=== PATIENT | female | born 1985 | race Caucasian/White ===

== ENCOUNTER 2016-07-11 18:09 | Inpatient (IN) | payer OTHER ==
[~2016-07-11] VITALS: Ht 165.1 cm; Wt 72.8 kg
[~2016-07-11 18:09] MED LIST: FOLI1TAB6; METHPOW77; NOR5T
[2016-07-11] MEDS ORDERED: SODIUM CHLORIDE 0.9% 1,000 ML IV ONE (19:14)
[2016-07-11] MEDS ORDERED: ONDANSETRON HCL 4 MG/2 ML VIAL IV ONE ×2 (19:15→21:00)
[2016-07-11] MEDS ORDERED: HYDROmorphone HCL 2 MG/ML VL IV ONE ×2 (19:15→21:00)
[2016-07-11 19:16] LABS: Basophils # (auto) 0 uL; Basophils % (auto) 0.6 % (0.0-2.0); Eosinophils # (auto) 0 uL; Eosinophils % (auto) 1.2 % (0.0-7.0); Hematocrit 41.6 % (36.0-46.0); Hemoglobin 13.8 g/dL (12.2-16.2); Lymphocytes # (auto) 0.3 uL; Lymphocytes % (auto) 13.1 % (10.0-50.0); Mean Corpuscular Hemoglobin 28.9 pg (28.0-32.0); Mean Corpuscular Hgb Conc. 33.2 g/dL (32.0-36.0); Mean Corpuscular Volume 87.1 fL (80.0-100.0); Mean Platelet Volume 8.9 fL (7.4-10.4); Monocytes # (auto) 0.4 uL; Monocytes % (auto) 13.7 % (0.0-12.0); Neutrophils # (auto) 1.9 uL; Neutrophils % (auto) 71.4 % (37.0-80.0); Platelet Count (auto) 204 10^3/uL (140-450); White Blood Cell 2.6 10^3/uL (4.4-10.8)
[2016-07-11 19:24] LABS: Albumin 4.2 g/dL (3.4-5.0); BUN/Creatinine Ratio 17.1; Calcium 8.5 mg/dL (8.5-10.1); Potassium 3.4 mmol/L (3.5-5.1)
[2016-07-11 19:26] LABS: Bilirubin, Total 0.4 mg/dL (0.2-1.0); Total Protein 7.2 g/dL (6.4-8.2)
[2016-07-12] VITALS (7 sets, daily range): BP systolic 96–102; BP diastolic 60–74
[2016-07-12 00:13] LABS: Urine Bilirubin Negative (Negative); Urine Blood Negative /uL (Negative); Urine Color Yellow (Yellow); Urine Glucose Normal (Normal); Urine Mucus FEW (None Seen); Urine Nitrite Negative (Negative); Urine RBC 1 /hpf (0 - 4); Urine Urobilinogen Normal (Negative)
[2016-07-12 00:15] LABS: Urine Ketone 2+ (Negative)
[2016-07-12] MEDS ORDERED: HYDROmorphone HCL 2 MG/ML VL IV ONE (01:15)
[2016-07-12] MEDS ORDERED: PROMETHAZINE HCL 25 MG/ML 1ML IV ONE (01:15)
[2016-07-12] MEDS ORDERED: ACETAMINOPHEN 325 MG TAB PO PRN (02:15)
[2016-07-12] MEDS ORDERED: ONDANSETRON HCL 4 MG/2 ML VIAL IV PRN (02:15)
[2016-07-12] MEDS ORDERED: POTASSIUM CHL 20 Meq TABLET PO ONE (02:30)
[2016-07-12] MEDS: HYDROcodone-ACET 5/325MG TAB PO PRN ×2 (03:49→19:51)
[2016-07-12] MEDS ORDERED: OXY10CRT PO (03:57)
[2016-07-12] MEDS ORDERED: TOCI80IN IV (03:57)
[2016-07-12] MEDS: FAMOTIDINE 20 MG TAB PO SCH ×2 (08:59→21:49)
[2016-07-12] MEDS: MORPHINE SULF INJ 2 MG/ML SYRINGE 1ML IV PRN ×4 (08:59→22:12)
[2016-07-12] MEDS ORDERED: methylPREDNISolone SOD SUCC 40 MG/ML VL IV ONE (14:15)
[2016-07-12] MEDS: SODIUM CHLORIDE 0.9% 1,000 ML IV SCH (17:57)
[2016-07-13] MEDS: MORPHINE SULF INJ 2 MG/ML SYRINGE 1ML IV PRN ×3 (03:15→16:09)
[2016-07-13] MEDS: SODIUM CHLORIDE 0.9% 1,000 ML IV SCH (03:15)
[2016-07-13 05:00] VITALS: BP 97/59
[2016-07-13 06:09] LABS: Basophils # (auto) 0 uL; Basophils % (auto) 1.7 % (0.0-2.0); Eosinophils # (auto) 0 uL; Eosinophils % (auto) 0.4 % (0.0-7.0); Hematocrit 38.4 % (36.0-46.0); Hemoglobin 12.7 g/dL (12.2-16.2); Lymphocytes # (auto) 0.7 uL; Lymphocytes % (auto) 25.6 % (10.0-50.0); Mean Corpuscular Hemoglobin 29.5 pg (28.0-32.0); Mean Corpuscular Hgb Conc. 33.1 g/dL (32.0-36.0); Mean Corpuscular Volume 89.3 fL (80.0-100.0); Mean Platelet Volume 9.3 fL (7.4-10.4); Monocytes # (auto) 0.4 uL; Monocytes % (auto) 13.7 % (0.0-12.0); Neutrophils # (auto) 1.6 uL; Neutrophils % (auto) 58.6 % (37.0-80.0); Platelet Count (auto) 146 10^3/uL (140-450); Red Cell Distribution Width 11.8 % (11.6-16.0); White Blood Cell 2.7 10^3/uL (4.4-10.8)
[2016-07-13 06:36] LABS: Albumin 3.2 g/dL (3.4-5.0); Calcium 7.6 mg/dL (8.5-10.1); Magnesium 2.1 mg/dL (1.6-2.6); Potassium 4.1 mmol/L (3.5-5.1)
[2016-07-13 06:38] LABS: BUN/Creatinine Ratio 15.1
[2016-07-13 06:40] LABS: Bilirubin, Total 0.3 mg/dL (0.2-1.0); Total Protein 5.8 g/dL (6.4-8.2)
[2016-07-13] MEDS: HYDROcodone-ACET 5/325MG TAB PO PRN ×2 (06:55→18:33)
[2016-07-13 08:28] VITALS: BP 96/65
[2016-07-13] MEDS ORDERED: methylPREDNISolone SOD SUCC 40 MG/ML VL IV SCH ×2 (10:00)
[2016-07-13] MEDS: FAMOTIDINE 20 MG TAB PO SCH (10:40)
[2016-07-13 13:00] VITALS: BP 95/69
[2016-07-13 17:05] VITALS: BP 106/70
== END 2016-07-13 20:00 | disposition short-term general hospital (02) | DRG 552 ==
LOC: EDUNIT# 18:09 → ER 18:09 → OVERFLOW 18:10 → WEST WING 07-12 03:23
PROVIDERS: ADMIT Nurse Practitioner; ATTEND Family Medicine
DX: M54.5 Low back pain (principal); K75.9 Inflammatory liver disease, unspecified; E87.6 Hypokalemia; M06.9 Rheumatoid arthritis, unspecified; M06.4 Inflammatory polyarthropathy; M19.90 Unspecified osteoarthritis, unspecified site; G89.29 Other chronic pain; Z98.51 Tubal ligation status; Z98.890 Other specified postprocedural states; Z90.49 Acquired absence of other specified parts of digestive tract; Z82.49 Family history of ischemic heart disease and other diseases of the circulatory system; Z83.3 Family history of diabetes mellitus; Z88.8 Allergy status to other drugs, medicaments and biological substances
CPT/HCPCS: 36415; 71010; 71250; 72128; 72131; 80053; 81001; 81025; 83735; 85025; 85652; 86141; 93005; 94761; 96361; 96374; 96375; 96376; J2405